=== PATIENT | female | born 1980 | race Hispanic/Latino ===

== ENCOUNTER 2022-01-25 04:54 | Emergency (ER) | payer OTHER ==
[~2022-01-25] VITALS: Ht 167.6 cm; Wt 97.1 kg
[2022-01-25] MEDS ORDERED: KETOROLAC TROMETHAMINE 30 MG/ML VIAL IV STA (05:35)
[2022-01-25] MEDS ORDERED: DEXAMETHASONE SOD PHOS INJ 4 MG/ML SDV IV ONE (05:45)
[2022-01-25] MEDS ORDERED: SODIUM CHLORIDE 0.9% 1000ML 1,000 ML IV SCH (05:45)
[2022-01-25] MEDS ORDERED: METOCLOPRAMIDE HCL 10 MG/2ML VIAL IV ONE (05:45)
[2022-01-25] MEDS ORDERED: DIPHENHYDRAMINE HCL INJ 50 MG/ML VIAL IV ONE (05:45)
[2022-01-25] MEDS ORDERED: DEXAMETHASONE SOD PHOS INJ 4 MG/ML SDV ONE (05:51)
[2022-01-25] MEDS ORDERED: DIPHENHYDRAMINE HCL INJ 50 MG/ML VIAL ONE (05:51)
[2022-01-25] MEDS ORDERED: METOCLOPRAMIDE HCL 10 MG/2ML VIAL ONE (05:51)
[2022-01-25] MEDS ORDERED: SODIUM CHLORIDE 0.9% 1000ML 1,000 ML ONE (05:51)
[2022-01-25] MEDS ORDERED: KETOROLAC TROMETHAMINE 30 MG/ML VIAL ONE (05:51)
[2022-01-25] MEDS ORDERED: FIORICET 50-301 EACH PO (05:52)
[2022-01-25] MEDS ORDERED: ONDANSETRON ODT4 MG PO (05:53)
== END 2022-01-25 07:10 | disposition home or self-care (01) ==
LOC: FSED 05:20
DX: G43.009 Migraine without aura, not intractable, without status migrainosus (principal); K21.9 Gastro-esophageal reflux disease without esophagitis
CPT/HCPCS: 99283; J1100; J1200; J1885; J2765; J7030

== ENCOUNTER 2024-04-02 15:17 | Emergency (ER) | payer OTHER ==
[~2024-04-02] VITALS: Ht 167.6 cm; Wt 105.8 kg
[~2024-04-02 15:17] MED LIST: FIORICET 50-301 EACH PO; ONDANSETRON ODT4 MG PO
[2024-04-02 15:33] VITALS: TEMP 98.7
[2024-04-02] MEDS: FAMOTIDINE 20 MG/2 ML VIAL IV ONE (16:10)
[2024-04-02] MEDS: ONDANSETRON HCL INJ 2MG/ML 2ML 2 MG/ML VIAL IV ONE (16:10)
[2024-04-02] MEDS: KETOROLAC TROMETHAMINE 30 MG/ML VIAL IV ONE (16:10)
[2024-04-02] MEDS: LACTATED RINGER'S 1,000 ML IV ONE (16:11)
[2024-04-02] MEDS ORDERED: IOPAMIDOL 370 MG/ML 100 ML INFUS..BTL INJ ONE (16:33)
[2024-04-02] MEDS ORDERED: ONDANSETRON ODT4 MG PO (17:54)
[2024-04-02] MEDS ORDERED: MAGNESIUM CITR296 ML PO (17:54)
[2024-04-02 18:11] VITALS: PULSE 65; RESP 16; O2SAT 99
[2024-04-02] MEDS ORDERED: IBUPROFEN800 MG PO (18:24)
[2024-04-02] MEDS ORDERED: ESTRADIOL1 MG PO (18:24)
== END 2024-04-02 18:11 | disposition home or self-care (01) ==
LOC: FSED 15:28
DX: R10.32 Left lower quadrant pain (principal); K58.1 Irritable bowel syndrome with constipation; K21.9 Gastro-esophageal reflux disease without esophagitis
CPT/HCPCS: 74177; 80053; 81003; 85025; 96360; 96374; 96375; 99284; J1885; J2405; J7121; Q9967

== ENCOUNTER 2024-05-29 10:11 | Observation (INO) | payer OTHER ==
[~2024-05-29] VITALS: Ht 167.6 cm; Wt 104.3 kg
[~2024-05-29 10:11] MED LIST changes: +ESTRADIOL1 MG PO; +IBUPROFEN800 MG PO; +MAGNESIUM CITR296 ML PO
[2024-05-29] MEDS ORDERED: IOPAMIDOL 370 MG/ML 100 ML INFUS..BTL INJ ONE (10:46)
[2024-05-29] MEDS: SODIUM CHLORIDE 0.9% 500ML 500 ML IV STA (11:36)
[2024-05-29 12:15] VITALS: TEMP 98
[2024-05-29] MEDS ORDERED: SODIUM CHLORIDE FLUSH 10 ML SYR INJ PRN (12:30)
[2024-05-29] MEDS: ASPIRIN 81 MG CHEW TAB PO ONE (13:33)
[2024-05-29 13:36] VITALS: PULSE 79; RESP 14
[2024-05-29] MEDS ORDERED: ONDANSETRON HCL INJ 2MG/ML 2ML 2 MG/ML VIAL IV PRN (15:30)
[2024-05-29] MEDS ORDERED: HYDRALAZINE HCL 20 MG/ML VIAL IV PRN (15:30)
[2024-05-29 15:40] VITALS: BP 162/82; PULSE 77; RESP 20; TEMP 98.9; O2SAT 100
[2024-05-29] MEDS: ACETAMINOPHEN 325 MG TAB PO PRN (16:32)
[2024-05-29] MEDS: BUTALB PO PRN (16:33)
[2024-05-29] MEDS: [UNRECOGNIZED DRUG - OTHER] PO PRN (16:33)
[2024-05-29] MEDS: CAFFEINE PO PRN (16:33)
[2024-05-29] MEDS: ACETAMINOPHEN PO PRN (16:33)
[2024-05-29] MEDS ORDERED: OMEPRAZOLE40 MG PO (16:41)
[2024-05-29 16:55] VITALS: BP 145/95; PULSE 77; RESP 20; TEMP 98.9; O2SAT 99
[2024-05-29] MEDS ORDERED: ACETAMINOPHEN PO PRN (17:00)
[2024-05-29] MEDS ORDERED: CAFFEINE PO PRN (17:00)
[2024-05-29] MEDS ORDERED: BUTALB PO PRN (17:00)
[2024-05-29 20:00] VITALS: BP 123/79; PULSE 65; RESP 18; TEMP 98.5; O2SAT 99
[2024-05-30] VITALS: BP 108/65; PULSE 60; RESP 18; TEMP 98.1; O2SAT 100
[2024-05-30 00:16] LABS: CREATINE KINASE 85 IU/L (29-168)
[2024-05-30 00:34] LABS: TROPONIN I < 0.001 ng/mL (0-0.300)
[2024-05-30 04:00] VITALS: BP 106/64; PULSE 70; RESP 18; TEMP 98.2; O2SAT 98
[2024-05-30 05:54] LABS: CHOL/HDL RATIO 4.2 (3.0-3.6)
[2024-05-30 06:13] LABS: THYROID STIMULATING HORMONE 1.077 uIU/mL (0.350-4.940)
[2024-05-30 06:43] LABS: BASOPHILS # (AUTO) 0.1 (0.0-0.1); BASOPHILS % 0.9 % (0.0-1.0); EOSINOPHILS # (AUTO) 0.1 (0.0-0.4); EOSINOPHILS % 1.3 % (0.0-6.0); HEMATOCRIT 43.3 % (34.2-44.1); HEMOGLOBIN 13.6 g/dL (12.0-16.0); LYMPHOCYTES # (AUTO) 2.5 (1.0-3.2); MEAN CORPUSCULAR HGB CONC 31.4 g/dL (31-35); MEAN CORPUSCULAR VOLUME 89.3 fL (81-99); MONOCYTES # (AUTO) 0.5 (0.2-0.8); MONOCYTES % 8.5 % (4.4-11.3); NEUTROPHILS # (AUTO) 2.4 (2.1-6.9); NEUTROPHILS % 43.1 % (38.7-80.0); PLATELET COUNT 278 x10e3/uL (140-360); RED BLOOD COUNT 4.85 x10e6/uL (3.6-5.1); RED CELL DISTRIBUTION WIDTH 12.9 % (11.7-14.4); WHITE BLOOD COUNT 5.44 x10e3/uL (4.8-10.8)
[2024-05-30 07:16] LABS: TROPONIN I 0.001 ng/mL (0-0.300)
[2024-05-30 07:20] LABS: ANION GAP 15.9 mmol/L (8-16); CALCIUM 9.4 mg/dL (8.4-10.2); CREATININE, SERUM 0.82 mg/dL (0.57-1.11); POTASSIUM 3.9 mmol/L (3.5-5.1)
[2024-05-30 08:00] VITALS: BP 106/64; PULSE 70; RESP 18; TEMP 98.2; O2SAT 98
[2024-05-30 08:03] VITALS: BP 126/76; PULSE 69; RESP 19; TEMP 97.7; O2SAT 98
[2024-05-30] MEDS: PANTOPRAZOLE SODIUM 20 MG TABLET.DR PO SCH (08:19)
[2024-05-30] MEDS: LOSARTAN POTASSIUM 25 MG TAB PO SCH (09:00)
[2024-05-30] MEDS: ESTRADIOL 1 MG TAB PO SCH (11:02)
[2024-05-30] MEDS: ENOXAPARIN SOD INJ 40 MG/0.4 ML SYR SC SCH (11:06)
[2024-05-30 11:17] VITALS: BP 111/62; PULSE 72; RESP 20; TEMP 98.3; O2SAT 99
[2024-05-30] MEDS: FUROSEMIDE INJ 10 MG/ML 4 ML VIAL IV ONE (12:24)
[2024-05-30] MEDS ORDERED: ONDANSETRON HCL 4 MG ORAL DISINTEGRATING TAB PO PRN (12:30)
== END 2024-05-30 14:21 | disposition home or self-care (01) ==
LOC: FSED 10:16 → ERHOLD 12:33 → MED/SURG2 15:42
PROVIDERS: ADMIT Internal Medicine; ATTEND Internal Medicine
DX: I28.8 Other diseases of pulmonary vessels (principal); R06.00 Dyspnea, unspecified; E66.01 Morbid (severe) obesity due to excess calories; Z86.69 Personal history of other diseases of the nervous system and sense organs; R07.89 Other chest pain; E78.5 Hyperlipidemia, unspecified; J81.1 Chronic pulmonary edema; I51.7 Cardiomegaly; I50.9 Heart failure, unspecified; R03.0 Elevated blood-pressure reading, without diagnosis of hypertension; K29.70 Gastritis, unspecified, without bleeding; K21.9 Gastro-esophageal reflux disease without esophagitis; Z88.2 Allergy status to sulfonamides; Z79.1 Long term (current) use of non-steroidal anti-inflammatories (NSAID); Z79.899 Other long term (current) drug therapy; Z68.37 Body mass index [BMI] 37.0-37.9, adult; Z82.49 Family history of ischemic heart disease and other diseases of the circulatory system
CPT/HCPCS: 36415 ×2; 71260; 80048; 80053; 80061; 81003; 82550 ×2; 82553; 83880; 84443; 84484 ×2; 85025 ×2; 85379; 93005; 93306; 99284; G0378 ×2; J1650; J1940; J7040; Q9967